=== PATIENT | male | born 1985 ===

== ENCOUNTER 2018-07-05 09:18 | Emergency (ER) | payer SELFPAY ==
--- NOTE | 2018-07-05 10:08 | RAD ---
Indication: Worsening medial LEFT ankle pain and edema following injury 4 days ago. Comparison: No relevant prior exams available on the [facility] for comparison. Technique: AP, mortise, and lateral views LEFT ankle. REPORT AND IMPRESSION: #. Normal articular alignment and preserved joint spaces. #. Negative for fracture or osteochondral lesion. #. Mild soft tissue swelling over the medial malleolus.
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
== END 2018-07-05 10:50 | disposition home or self-care (01) ==
LOC: UCEAST 09:18
DX: S93.402A Sprain of unspecified ligament of left ankle, initial encounter (principal); X58.XXXA Exposure to other specified factors, initial encounter; Y93.55 Activity, bike riding; Y92.9 Unspecified place or not applicable
CPT/HCPCS: 99203; G0463